=== PATIENT | male | born 1980 | race Caucasian/White ===

== ENCOUNTER 2020-05-18 07:47 | Emergency (ER) | payer OTHER, MEDICARE, MEDICAID ==
[~2020-05-18] VITALS: Ht 172.7 cm; Wt 57.1 kg
--- NOTE | 2020-05-18 07:59 | NUR ---
PT BIBA FOR FALL WHEN TRANSFERRING FROM BED TO WHEELCHAIR. PT DENIES NECK/BACK PAIN OR NUMBNESS/TINGLING IN EXT'S. PT HAS A HEMATOMA TO RIGHT SIDE OF FOREHEAD WITH SCANT BLEEDING. PROVIDER BEDSIDE.
[2020-05-18] MEDS ORDERED: LIDOCAINE-MPF 1%, 5ML INFIL ONE (08:00)
[2020-05-18] MEDS ORDERED: DIPH,PERTUSS(ACELL),TET VAC/PF 0.5 ML IM-VACC ONE (08:00)
[2020-05-18 08:15] VITALS: BP 104/77
[2020-05-18] MEDS ORDERED: NEOSPORIN OINT. PKT 1 PACKET ONE (08:15)
--- NOTE | 2020-05-18 08:27 | NUR ---
OFF THE FLOOR TO CT
--- NOTE | 2020-05-18 09:20 | NUR ---
PT UTILIZED URINAL WITH ASSISTANCE OF FATHER. URINE SAMPLE SENT TO LAB
--- NOTE | 2020-05-18 09:30 | NUR ---
PA AT BEDSIDE REPAIRING LACERATION
[2020-05-18 09:36] LABS: MICROSCOPIC AUTO
--- NOTE | 2020-05-18 10:06 | NUR ---
PT PLACED IN WHEELCHAIR WITH ASSISTANCE FROM FATHER. PT AND FATHER SHOWN DC DESK WITHOUT ISSUE.
== END 2020-05-18 10:09 | disposition home or self-care (01) ==
LOC: ED 09:03
DX: S01.81XA Laceration without foreign body of other part of head, initial encounter (principal); S09.90XA Unspecified injury of head, initial encounter; K21.9 Gastro-esophageal reflux disease without esophagitis; W05.0XXA Fall from non-moving wheelchair, initial encounter; Y93.89 Activity, other specified; Y92.009 Unspecified place in unspecified non-institutional (private) residence as the place of occurrence of the external cause; Y99.8 Other external cause status
CPT/HCPCS: 12051; 70450; 72125; 81001; 90471; 90715; 99285